=== PATIENT | male | born 1990 | race Hispanic/Latino ===

== ENCOUNTER 2020-06-22 12:44 | Emergency (ER) | payer OTHER ==
[2020-06-22] MEDS ORDERED: LIDOCAINE HCL 1% 20 ML VIAL ONE ×2 (13:09→15:02)
[2020-06-22] MEDS ORDERED: L.E.T. GEL 4%/0.5%/0.18% 3ML 3 ML/SYR SYG TP ONE (13:10)
[2020-06-22] MEDS ORDERED: TETANUS/DIPHTHERIA TOXOID [ADULT] 0.5 ML VIAL IM ONE (13:18)
== END 2020-06-22 15:21 | disposition home or self-care (01) ==
LOC: EDH 12:44
DX: S51.812A Laceration without foreign body of left forearm, initial encounter (principal); Z72.0 Tobacco use; W45.8XXA Other foreign body or object entering through skin, initial encounter; Y93.89 Activity, other specified; Y92.89 Other specified places as the place of occurrence of the external cause; Y99.8 Other external cause status
CPT/HCPCS: 12004; 90471; 90714